=== PATIENT | male | born 2000 | race Hispanic/Latino ===

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

== ENCOUNTER 2020-06-07 15:01 | Emergency (ER) | payer BC ==
[~2020-06-07] VITALS: Ht 177.8 cm; Wt 72.6 kg
[2020-06-07] MEDS ORDERED: IBUPROFEN 400 MG TAB PO STA (15:49)
[2020-06-07] MEDS ORDERED: AZITHROMYCIN250 MG PO (15:58)
[2020-06-07] MEDS ORDERED: DECADRON6 MG PO (15:59)
--- OUTSIDE RECORDS SUMMARY | 2020-06-07 16:00 | XMS REPORT | Continuity of Care Document ---
Author Author [facility] t Organization [facility] Address [address] [place] [id number] Phone Unavailable Care Team Providers Care Beef Trimmer Name Role Phone ROSA FIGUEROA Attvarinder Unavailable Problems This patient has no known problems. Allergies, Adverse Reactions, Alerts This patient has no known allergies or adverse reactions. Medications This patient has no known medications. Procedures This patient has no known procedures. Results Test Description Test Time Test Comments Results Result Comments Source US ABDOMEN COMPLETE 2018-12-10 12:21:00 [place] [id number] Patient Name: GAMALIEL NGO MR #: [id number] : 2000 Age/Sex: 18/M Req #: [id number] Adm Physician: Ordered by: HENRY RANDOLPH, ROSA Blanco MD Report #: [id number] Location: US Room/Bed: Procedure: [id number] US/US ABDOMEN COMPLETE Exam Date: Exam Time: REPORT STATUS: Signed EXAM: US ABDOMEN COMPLETE DATE: 12/10/2018 10:04 AM Time stamp on exam: INDICATION: Abdominal pain COMPARISON: None TECHNIQUE: Transverse and longitudinal swanson scale and color doppler sonographic images of the upper abdomen were obtained. FINDINGS: LIVER 13.7 cm in the right midclavicular line. Normal echogenicity, normal contour, no masses. SPLEEN 11.1 cm in maximum diameter. Normal echogenicity, no masses. GALLBLADDER No stones, sludge, wall-thickening or pericholecystic fluid. Negative sonographic Bassett's sign. BILE DUCTS No intra nor extra-hepatic biliary dilation. Common bile duct measures 0.2 cm PANCREAS: Visualized portions are normal. RIGHT KIDNEY: 10.2 cm Echogenicity: Normal Collecting System: No hydronephrosis Stones: None Cyst/Mass: None LEFT KIDNEY: 10.4 cm Echogenicity: Normal Collecting System: No hydronephrosis Stones: None Cyst/Mass: None VESSELS: Aorta: Nonaneurysmal Inferior Vena Cava: Patent Main Portal Vein: 1.1 cm, normal size with hepatopetal flow. FREE FLUID: None IMPRESSION: Unremarkable abdominal ultrasound. Signed by: Dr. Deborah Maldonado M.D. on 12/10/2018 12:23 PM Dictated By: DEBORAH MALDONADO MD 1223 Transcribed By: MARYAM on 12/10/18 1223 COPY TO: ROSA FIGUEROA
[2020-06-07] MEDS ORDERED: ZOFRAN4 MG PO (16:01)
[2020-06-07] MEDS ORDERED: IBUPROFEN 400 MG TAB ONE (16:05)
--- NOTE | 2020-06-07 17:45 | Emergency Department Note ---
History of Present Illnes History of Present Illness Chief Complaint: General Medicine Complaints History of Present Illness This is a 20 year old male with fever X 3 days. Mild headache, runny nose (clear). Denies sore throat, but states it feels mildly irritated. No cough, congestion, ear aches. No loss of smell/taste. Historian: Patient, Family Member Folder Taper Operator Required: No Onset (how long ago): day(s) (3) Location: mild frontal headache Quality: dull Radiation: Reports non-radiation Severity: mild Onset quality: unable to specify Duration (how long): day(s) (3) Timing of current episode: constant Progression: unable to specify Chronicity: new Context: Reports recent illness; Denies trauma/injury Relieving factors: none Exacerbating factors: none Associated symptoms: Reports fever/chills, Reports headaches (mild); Denies confusion, Denies chest pain, Denies cough, Denies diaphoresis, Denies loss of appetite, Denies malaise, Denies nausea/vomiting, Denies rash, Denies shortness of breath Past Medical/Family History Physician Review I have reviewed the patient's past medical and family history. Any updates have been documented here. Past Medical History Recent Fever: No Clinical Suspicion of Infectio: No New/Unexplained Change in Ment: No Past Medical History: None Past Surgical History: None Social History Smoking Cessation: Never Smoker Counseling Performed: No Alcohol Use: None Any Illegal Drug Use: No Physically hurt or threatened: No Other Any Pre-Existing Lines (PICC,: No Review of Systems Review of Systems Constitutional: Reports chills, Reports fever EENTM: Reports throat pain; Denies ear discharge, Denies nose congestion Cardiovascular: Denies chest pain, Denies edema Respiratory: Denies cough, Denies dyspnea Gastrointestinal: Reports nausea; Denies vomiting Genitourinary: Denies dysuria Musculoskeletal: Denies neck pain Integumentary: Denies rash Neurological: Denies headache Endocrine: Denies increased urination Hematological/Lymphatic: Denies easy bruising Physical Exam Related Data Allergies: Coded Allergies: No Known Allergies (Unverified , 06/07/20) Triage Vital Signs Vital Signs Date Time Temp Pulse Resp B/P (MAP) Pulse Ox O2 Delivery O2 Flow Rate FiO2 06/07/20 15:04 98.5 81 16 149/78 100 Room Air Physical Exam CONSTITUTIONAL Constitutional: Present well-developed, Present well-nourished HENT HENT: Present normocephalic, Present atraumatic, Present oropharynx clear/moist, Present oropharynx normal, Present nose normal, Present other (no sinus tenderness); Absent mucosae dry, Absent nasal discharge, Absent nasal congestion, Absent rhinorrhea, Absent oropharyngeal exudate, Absent erythema HENT L/R: Present left TM normal, Present right TM normal, Present left canal normal, Present right canal normal, Present left ext ear normal, Present right ext ear normal EYES Eyes: Reports PERRL, Reports conjunctivae normal, Reports lids normal; Denies left eye discharge, Denies right eye discharge NECK Neck: Present ROM normal, Present supple, Present other (no kurnig's, no brudinski's) PULMONARY Pulmonary: Present effort normal, Present breath sounds normal CARDIOVASCULAR Cardiovascular: Present regular rhythm, Present heart sounds normal, Present capillary refill normal, Present normal rate GASTROINTESTINAL Abdominal: Present soft, Present nontender, Present bowel sounds normal GENITOURINARY SKIN Skin: Present warm, Present dry MUSCULOSKELETAL Musculoskeletal: Present ROM normal NEUROLOGICAL Neurological: Present alert, Present oriented x 3, Present no gross motor or sensory deficits PSYCHOLOGICAL Psychological: Present mood/affect normal, Present judgement normal Results Laboratory Laboratory comments Flu: negative. Will treat with zithromax and decardron for suspected COVID. Strict return precautions given. Patient to have prompt followup. Imaging Imaging Comments rapid flu negative Assessment & Plan Medical Decision Making MDM Differential dx includes, but not limited to: COVID, Flu A/B, other viral illness, URI, sinusitis, allergic rhinitis Assessment & Plan Final Impression: (1) COVID-19 (2) Viral illness Depart Disposition: HOME, SELF-CARE Last Vital Signs Date Time Temp Pulse Resp B/P (MAP) Pulse Ox O2 Delivery O2 Flow Rate FiO2 06/07/20 15:04 98.5 81 16 149/78 100 Room Air Home Meds Active Scripts Ondansetron Hcl* (ZOFRAN*) 4 Mg Tablet, 4 MG PO Q6HR PRN for NAUSEA AND VOMITIN G, #10 Prov:PATRICIA MATT MD 06/07/20 Dexamethasone (Decadron) 6 Mg Tablet, 1 TAB PO DAILY, #6 Prov:PATRICIA MATT MD 06/07/20 Azithromycin (Z-CIRO) 250 Mg Tablet, 1 PKT PO . DIRECTED, #1 PACKET 0 Refills Z-PACK DIRECTED Prov:PATRICIA MATT MD 06/07/20 PATRICIA MATT MD Jun 07, 2020 15:46
== END 2020-06-07 16:01 | disposition home or self-care (01) ==
LOC: FSED 15:10
DX: U07.1 COVID-19 (principal); B34.9 Viral infection, unspecified; R51.9 Headache, unspecified
CPT/HCPCS: 87400; 99283